=== PATIENT | male | born 1980 | race Caucasian/White ===

== ENCOUNTER 2017-05-07 15:24 | Emergency (ER) | payer OTHER ==
[2017-05-07 15:34] VITALS: BP 143/86; PULSE 88; TEMP 99.3; BMI 32.5
--- NOTE | 2017-05-07 19:48 | PDOC ---
History of Present Illness - General Chief Complaint: Headache Stated Complaint: PCP SENT Time Seen by Provider: 05/07/17 19:25 History Source: Patient - History of Present Illness Initial Comments: 05/07/17 19:41 36 year old with headaches on and off worse with bearing down with some associated dizziness. patient currently asymptomatic. patient s/p MRI by PMD Dr. Daniels who advised patient to be seen in the ED for Neurosurgical evaluation. Patient denies headache, dizziness, NVD, abdominal pain. Past History - Psycho/Social/Smoking Cessation Hx Anxiety: No Suicidal Ideation: No Smoking History: Never smoked Have you smoked in the past 12 months: No Information on smoking cessation initiated: No Hx Alcohol Use: No Drug/Substance Use Hx: No Substance Use Type: None Neuro Specific PMHX - Complaint Specific PMHX Glaucoma: No Herniated Disk: No Laminectomy: No Migraine: No Multiple Sclerosis: No Neuropathy: No TIA: No Review of Systems - Review of Systems Able to Perform ROS?: Yes Is the patient limited Welsh proficient: No Constitutional: No: Symptoms Reported, See HPI, Chills, Diaphoresis, Fever, Loss of Appetite, Malaise, Night Sweats, Weakness, Weight Stable, Unintentional Wgt. Loss, Unexplained wgt Loss, Other Neurological: Yes: Headache, Dizziness. No: Symptoms reported, See HPI, Numbness, Paresthesia, Pre-Existing Deficit, Seizure, Tingling, Tremors, Weakness, Unsteady Gait, Ataxia, Other *Physical Exam - Vital Signs Last Vital Signs Temp Pulse Resp BP Pulse Ox 99.3 F 88 17 143/86 99 05/07/17 15:31 05/07/17 15:31 05/07/17 15:31 05/07/17 15:31 05/07/17 15:31 - Physical Exam General Appearance: Yes: Appropriately Dressed Respiratory/Chest: positive: Lungs Clear, Normal Breath Sounds Gastrointestinal/Abdominal: positive: Normal Bowel Sounds, Soft Integumentary: positive: Normal Color, Dry, Warm Neurologic: positive: psychiatric clinician II-XII NML intact, Fully Oriented, Alert, Normal Mood/ Affect, Normal Response, Motor Strength 5/5 ED Treatment Course - RADIOLOGY Radiograph Interpretation: 05/07/17 19:52 MRI Out side radiology: 04/26/2017: 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 Progress Note - Progress Note Progress Note: A: Headache, chiari malformation P: neurosurgical consult. neuro exam normal Medical Decision Making - Medical Decision Making 05/07/17 19:[address] Davidson neurosurgery. reviewed MRI results recommends outpatient since patient is not acutely ill. 05/07/17 20:[address] Shruthi Daniels is aware of plan. *DC/Admit/Observation/Transfer Diagnosis at time of Disposition: Chiari I malformation - Discharge Dispostion Disposition: HOME - Referrals Referrals: Candis Daniels MD [Primary Care Provider] - Dimitri Cannon MD, FAANS [Staff Physician] - Call tomorrow - Patient Instructions Printed Discharge Instructions: Chiari Malformation Additional Instructions: Please call Dr. Davidson's office tomorrow for a prompt follow up. return to the ER if you are having dizziness, worsening headache, nausea. NIH Stroke Scale - Initial Evaluation Level of consciousness: Alert Ask patient the month and their age: Answers both correctly Ask patient to open & close eyes; make fist and let go: Obeys both correctly Best gaze (horizontal eye movement): Normal Visual field testing: No visual field loss Facial paresis (Show teeth/raise eyebrows/close eyes tight): Normal symmetrical movement Motor Function: Left Arm: Normal Motor Function: Right Arm: Normal (extends arm 90 (or 45) degrees for 10 seconds without drift Motor Function: Left Leg: Normal (extends leg 30 degrees for 5 seconds without drift) Motor Function: Right Leg: Normal (extends leg 30 degrees for 5 seconds without drift) Limb Ataxia: No ataxia Sensory(Use pinprick test arms,legs,trunk,face/side to side): Normal Best language (Describe picture, name items, read sentences): No Aphasia Dysarthria (read several words): Normal articulation Extinction and Inattention: No abnormality - Total Score NIH Stroke Scale Score: 0
== END 2017-05-07 20:00 | disposition home or self-care (01) ==
LOC: JER 15:24
DX: G93.5 Compression of brain (principal)
CPT/HCPCS: 99281-25

== ENCOUNTER 2019-06-10 16:38 | Emergency (ER) | payer OTHER ==
[2019-06-10 16:55] VITALS: BP 101/67; PULSE 89; TEMP 98.7; BMI 26.2
[2019-06-10] MEDS ORDERED: DEXAMETHASONE SOD PHOSPHATE 10 MG/1 ML VIAL ONE (18:20)
[2019-06-10] MEDS ORDERED: DEXAMETHASONE LIQUID 0.5 MG/5 ML PO ONE (18:20)
--- NOTE | 2019-06-10 18:33 | PDOC ---
History of Present Illness - General Chief Complaint: Sore Throat Stated Complaint: Sore Throat/COUGH Time Seen by Provider: 06/10/19 17:30 History Source: Patient Exam Limitations: No Limitations Past History - Travel Traveled outside of the country in the last 30 days: No Close contact w/someone who was outside of country & ill: No - Past Medical History Allergies/Adverse Reactions: Allergies Allergy/AdvReac Type Severity Reaction Status Date / Time No Known Allergies Allergy Verified 06/10/19 16:55 Home Medications: Ambulatory Orders Methylprednisolone [Medrol Dose Robin] 4 mg PO ASDIR #21 tablet 06/10/19 COPD: No Other medical history: DENIES - Immunization History Immunization Up to Date: Yes - Psycho Social/Smoking Cessation Hx Smoking History: Never smoked Have you smoked in the past 12 months: No Information on smoking cessation initiated: No Hx Alcohol Use: No Drug/Substance Use Hx: No Substance Use Type: None Review of Systems - Review of Systems Able to Perform ROS?: Yes Comments:: 06/10/19 18:17 CONSTITUTIONAL: Absent: fever, chills, diaphoresis, generalized weakness, malaise, loss of appetite HEENT: Present: sore throat Absent: rhinorrhea, nasal congestion, throat swelling, difficulty swallowing, mouth swelling, ear pain, eye pain, visual Changes CARDIOVASCULAR: Absent: chest pain, loss of consciousness, palpitations, irregular heart rate, peripheral edema RESPIRATORY: Absent: cough, shortness of breath, dyspnea with exertion, orthopnea, wheezing, stridor, hemoptysis GASTROINTESTINAL: Absent: abdominal pain, abdominal distension, nausea, vomiting, diarrhea, constipation, melena, hematochezia GENITOURINARY: Absent: dysuria, frequency, urgency, hesitancy, hematuria, flank pain, genital pain MUSCULOSKELETAL: Absent: myalgia, arthralgia, joint swelling SKIN: Absent: rash, itching, pallor HEMATOLOGIC/IMMUNOLOGIC: Absent: easy bleeding, easy bruising, lymphadenopathy, frequent infections ENDOCRINE: Absent: unexplained weight gain, unexplained weight loss, heat intolerance, cold intolerance NEUROLOGIC: Absent: headache, focal weakness or paresthesias, dizziness, unsteady gait, seizure, mental status changes, bladder or bowel incontinence PSYCHIATRIC: Absent: anxiety, depression, suicidal or homicidal ideation, hallucinations. Is the patient limited Romanian proficient: No *Physical Exam - Vital Signs Last Vital Signs Temp Pulse Resp BP Pulse Ox 98.7 F 89 18 101/67 99 06/10/19 16:53 06/10/19 16:53 06/10/19 16:53 06/10/19 16:53 06/10/19 16:53 - Physical Exam Comments: 06/10/19 18:17 GENERAL: Well developed, well nourished. Awake and alert. No acute distress. HEENT: Normocephalic, atraumatic. PERRLA, EOMI. No conjunctival pallor. Sclera are non- icteric. Moist mucous membranes. Oropharynx is erythematous and mild swelling noted to the uvula. NECK: Supple. Full ROM. No JVD. Carotid pulses 2+ and symmetric, without bruits. No thyromegaly. No lymphadenopathy. CARDIOVASCULAR: Regular rate and rhythm. No murmurs, rubs, or gallops. Distal pulses are 2+ and symmetric. PULMONARY: No evidence of respiratory distress. Lungs clear to auscultation bilaterally. No wheezing, rales or rhonchi. ABDOMINAL: Soft. Non-tender. Non-distended. No rebound or guarding. No organomegaly. Normoactive bowel sounds. MUSCULOSKELETAL Normal range of motion at all joints. No bony deformities or tenderness. No CVA tenderness. EXTREMITIES: No cyanosis. No clubbing. No edema. No calf tenderness. SKIN: Warm and dry. Normal capillary refill. No rashes. No jaundice. NEUROLOGICAL: Alert, awake, appropriate. Cranial nerves 2-12 intact. No deficits to light touch and temperature in face, upper extremities and lower extremities. No motor deficits in the in face, upper extremities and lower extremities. Normoreflexic in the upper and lower extremities. Normal speech. Toes are down- going bilaterally. Gait is normal without ataxia. PSYCHIATRIC: Cooperative. Good eye contact. Appropriate mood and affect. Medical Decision Making - Medical Decision Making 06/10/19 19:30 The patient is a 38-year-old male with no past medical history who presents to the ER today with 3 weeks of sore throat. He has seen his primary care doctor for this issue. He was initially given Ceftin for his pain. He took the full dose and it did not resolve. His primary care doctor then switched him to Augmentin. He states he is still having sore throat and difficulty swallowing. He takes Tylenol with some relief of his symptoms. Denies fevers, chills, nausea , vomiting and diarrhea. A/P: Pharyngitis/uvulitis On exam patient with erythematous and slightly edematous uvula. His midline. No airway blockage. Patient is talking, airway is clear and maintained. Suspect this may be viral in etiology given length of symptoms with no improvement on antibiotics. Defer throat culture given he's been on antibiotics for almost 2 weeks. We'll treat with Decadron for the uvulitis; steroid sent the patient pharmacy for outpatient treatment. ENT referral given Discharge home with strict return precautions I discussed the physical exam findings, ancillary test results and final diagnoses with the patient. I answered all of the patient's questions. The patient was satisfied with the care received and felt comfortable with the discharge plan and treatment plan. The Patient agrees to follow up with the primary care physician/specialist within 24-72 hours. Return precautions were given. Discharge - Discharge Information Problems reviewed: Yes Clinical Impression/Diagnosis: Pharyngitis Qualifiers: Pharyngitis/tonsillitis etiology: unspecified etiology Qualified Code(s): J02.9 - Acute pharyngitis, unspecified Condition: Stable Disposition: HOME - Admission No - Additional Discharge Information Prescriptions: Methylprednisolone [Medrol Dose Robin] 4 mg PO ASDIR #21 tablet - Follow up/Referral Referrals: Candis Daniels MD [Primary Care Provider] - Kamar Valenzuela MD [Staff Physician] - - Patient Discharge Instructions Patient Printed Discharge Instructions: DI for Pharyngitis/Tonsillopharyngitis -- Adult Additional Instructions: You have a sore throat or pharyngitis. Continue taking your Augmentin as previously directed Take the medrol dose pack as directed starting tomorrow You may take tylenol 650mg every 4 hours as needed for pain Please do warm water gargles and cough drops to help with your pain. Change your toothbrush when you started feeling better. Follow-up with your primary care doctor. Call the specialist tomorrow (ENT) for an appointment. His name is Dr. Valenzuela. Return to the ER for fever, difficulty breathing, difficulty swallowing, or if you have any changes in your symptoms. - Post Discharge Activity Work/Back to School Note: Back to Work
== END 2019-06-10 18:47 | disposition home or self-care (01) ==
LOC: JERFT 16:38
DX: J02.9 Acute pharyngitis, unspecified (principal)
CPT/HCPCS: 99281-25

== ENCOUNTER 2019-10-05 15:33 | Emergency (ER) | payer OTHER ==
[2019-10-05] MEDS ORDERED: ACETAMINOPHEN 325 MG TABLET (FP) ONE (15:51)
[2019-10-05 15:55] VITALS: BP 116/68; PULSE 93; TEMP 100.1; BMI 29.1
[2019-10-05] MEDS ORDERED: ACETAMINOPHEN 325 MG TABLET (FP) PO ONE (15:55)
[2019-10-05] MEDS ORDERED: DEXAMETHASONE LIQUID 0.5 MG/5 ML PO ONE (17:09)
[2019-10-05] MEDS ORDERED: DEXAMETHASONE SOD PHOSPHATE 10 MG/1 ML VIAL ONE (17:11)
--- NOTE | 2019-10-05 17:13 | PDOC ---
History of Present Illness - General Chief Complaint: Sore Throat Stated Complaint: SORE THROAT Time Seen by Provider: 10/05/19 16:25 History Source: Patient Exam Limitations: No Limitations - History of Present Illness Initial Comments: 10/05/19 17:08 HISTORY OF PRESENT ILLNESS: 38-year-old male past medical history of Chiari malformation status post decompression who presents emergency department for evaluation of sore throat which is worsened over the past 3 days. Patient was seen and evaluated at another facility 3 days ago and was determined to have streptococcal pharyngitis. Patient was started on Augmentin at that time the patient is concerned that he still has a sore throat after 3 days. No recent travel or sick contacts. PAST MEDICAL HISTORY: Chiari malformation status post decompression SURGICAL HISTORY: Denies ALLERGIES: No known drug allergies REVIEW OF SYSTEMS General/Constitutional: Denies fever or chills. Denies weakness, weight change. HEENT: See HPI Cardiovascular: Denies chest pain or shortness of breath. Respiratory: Denies cough, wheezing, or hemoptysis. Gastrointestinal: Denies nausea, vomiting, diarrhea or constipation. Denies rectal bleeding. Genitourinary: Denies dysuria, frequency, or change in urination. Musculoskeletal: Denies joint or muscle swelling or pain. Denies neck or back pain. Skin and breasts: Denies rash or easy bruising. Neurologic: Denies headache, vertigo, loss of consciousness, or loss of sensation. Psychiatric: Denies depression or anxiety. Endocrine: Denies increased thirst. Denies abnormal weight change. Hematologic/Lymphatic: Denies anemia, easy bleeding, or history of blood clots. Allergic/Immunologic: Denies hives or skin allergy. Denies latex allergy. PHYSICAL EXAM General Appearance: Well-appearing, appropriately dressed. No apparent distress , no intoxication. HEENT: EOMI, PERRLA, normal ENT inspection, normal voice, TMs normal. No conjunctival pallor. No photophobia, scleral icterus. Oropharynx beefy red with tonsillar swelling present bilaterally. Tonsillar exudate present bilaterally. Uvula is midline. Neck: Supple. Trachea midline. No tenderness, rigidity, carotid bruit, stridor , lymphadenopathy, or thyromegaly. Neurologic: branding specialist II-XII intact. Fully oriented, alert. Appropriate mood/affect. Motor strength 5/5. No appreciable EOM palsy, facial droop or sensory deficit. 10/05/19 17:11 Past History - Past Medical History Allergies/Adverse Reactions: Allergies Allergy/AdvReac Type Severity Reaction Status Date / Time No Known Allergies Allergy Verified 10/05/19 15:53 Home Medications: Ambulatory Orders Amoxicillin 875 mg PO BID 10/05/19 COPD: No - Immunization History Immunization Up to Date: Yes - Psycho Social/Smoking Cessation Hx Smoking History: Unknown if ever smoked Have you smoked in the past 12 months: No Hx Alcohol Use: No Drug/Substance Use Hx: No Substance Use Type: None *Physical Exam - Vital Signs Last Vital Signs Temp Pulse Resp BP Pulse Ox 100.1 F H 93 H 18 116/68 100 10/05/19 15:53 10/05/19 15:53 10/05/19 15:53 10/05/19 15:53 10/05/19 15:53 ED Treatment Course - Medications Given in the ED: ED Medications Discontinued Medications Generic Name Dose Route Start Last Admin Trade Name Freq PRN Reason Stop Dose Admin Acetaminophen 975 mg 10/05/19 15:55 10/05/19 15:56 Tylenol - PO 10/05/19 15:56 975 mg NOW ONE Administration Medical Decision Making - Medical Decision Making 10/05/19 17:11 A/P: 38-year-old male with 3 days of sore throat. Patient was seen at another facility and was diagnosed with a streptococcal pharyngitis. Patient has been taking Augmentin since that time and is still having some sore throat. Decadron 10 mg orally now Tylenol 975 mg orally now Discharge home 10/05/19 17:13 Discharge - Discharge Information Problems reviewed: Yes Clinical Impression/Diagnosis: Pharyngitis Qualifiers: Pharyngitis/tonsillitis etiology: unspecified etiology Qualified Code(s): J02.9 - Acute pharyngitis, unspecified Condition: Stable Disposition: HOME - Admission No - Follow up/Referral Referrals: Candis Daniels MD [Primary Care Provider] - - Patient Discharge Instructions Additional Instructions: Take Augmentin as previously prescribed. Salt water garggles. Throw away your toothbrush and start using a new toothbrush. No sharing of drinks, utensils or toothbrushes. Take Motrin as directed by reaming machine operator's instructions. Return to ED for worsening fevers, worsening sore throat, chest pain, shortness of breath or any other concerns. - Post Discharge Activity
== END 2019-10-05 17:19 | disposition home or self-care (01) ==
LOC: JERFT 15:33
DX: J02.9 Acute pharyngitis, unspecified (principal)
CPT/HCPCS: 99281-25

== ENCOUNTER 2019-10-10 09:24 | Emergency (ER) | payer OTHER ==
[2019-10-10 09:41] VITALS: BP 101/63; PULSE 70; TEMP 98.3; BMI 29.1
[2019-10-10] MEDS ORDERED: ACETAMINOPHEN 325 MG TABLET (FP) PO ONE (10:41)
[2019-10-10] MEDS ORDERED: DEXAMETHASONE LIQUID 0.5 MG/5 ML PO ONE (10:41)
--- NOTE | 2019-10-10 10:42 | PDOC ---
History of Present Illness - General Chief Complaint: Cold Symptoms Stated Complaint: COLD SYMPTOMS Time Seen by Provider: 10/10/19 09:43 History Source: Patient Exam Limitations: No Limitations Past History - Travel Traveled outside of the country in the last 30 days: No Close contact w/someone who was outside of country & ill: No - Past Medical History Allergies/Adverse Reactions: Allergies Allergy/AdvReac Type Severity Reaction Status Date / Time No Known Allergies Allergy Verified 10/05/19 15:53 Home Medications: Ambulatory Orders Amoxicillin 875 mg PO BID 10/05/19 Clindamycin [Cleocin -] 300 mg PO TID #21 capsule 10/10/19 Ibuprofen 800 mg PO TID #30 tablet 10/10/19 COPD: No - Immunization History Immunization Up to Date: Yes - Psycho Social/Smoking Cessation Hx Smoking History: Never smoked Have you smoked in the past 12 months: No Information on smoking cessation initiated: No Hx Alcohol Use: No Drug/Substance Use Hx: No Substance Use Type: None Review of Systems - Review of Systems Able to Perform ROS?: Yes Comments:: 10/10/19 13:16 CONSTITUTIONAL: Absent: fever, chills, diaphoresis, generalized weakness, malaise, loss of appetite HEENT: Present: Sore throat absent: rhinorrhea, nasal congestion, throat swelling, difficulty swallowing, mouth swelling, ear pain, eye pain, visual Changes CARDIOVASCULAR: Absent: chest pain, loss of consciousness, palpitations, irregular heart rate, peripheral edema RESPIRATORY: Absent: cough, shortness of breath, dyspnea with exertion, orthopnea, wheezing, stridor, hemoptysis SKIN: Absent: rash, itching, pallor HEMATOLOGIC/IMMUNOLOGIC: Absent: easy bleeding, easy bruising, lymphadenopathy, frequent infections ENDOCRINE: Absent: unexplained weight gain, unexplained weight loss, heat intolerance, cold intolerance NEUROLOGIC: Absent: headache, focal weakness or paresthesias, dizziness, unsteady gait, seizure, mental status changes, bladder or bowel incontinence PSYCHIATRIC: Absent: anxiety, depression, suicidal or homicidal ideation, hallucinations. Is the patient limited Mohawk proficient: No *Physical Exam - Vital Signs Last Vital Signs Temp Pulse Resp BP Pulse Ox 98.3 F 70 16 101/63 100 10/10/19 09:39 10/10/19 09:39 10/10/19 09:39 10/10/19 09:39 10/10/19 09:39 - Physical Exam 10/10/19 13:17 GENERAL: The patient is awake, alert, and fully oriented, in no acute distress. HEAD: Normal with no signs of trauma. EYES: Pupils equal, round and reactive to light, extraocular movements intact, sclera anicteric, conjunctiva clear. HEENT: No nasal congestion or rhinorrhea. No sinus Tenderness. Mucous membranes are moist. (+) tonsillar erythema, exudate or edema. Ulceration noted to the left tonsil. Uvula is midline. No TM bulging, dullness or erythema EXTREMITIES: Normal range of motion, no edema. NEUROLOGICAL: Normal speech, normal gait. PSYCH: Normal mood, normal affect. SKIN: Warm, Dry, normal turgor, no rashes or lesions noted. Medical Decision Making - Medical Decision Making 10/10/19 13:18 The patient is a 38-year-old male with past medical history of Chiari malformation status post surgery, presents to the ER today for sore throat. He states that the pain is been going on for 10 days. He states he finished a course of Augmentin however he is still having symptoms. Denies fevers, chills, difficulty swallowing. He is able to swallow his own secretions. A/P: Strep pharyngitis Rapid strep positive Delay in disposition due to strep results. We will change patient to Clindamycin Refer to ENT Discharge home I discussed the physical exam findings, ancillary test results and final diagnoses with the patient. I answered all of the patient's questions. The patient was satisfied with the care received and felt comfortable with the discharge plan and treatment plan. The Patient agrees to follow up with the primary care physician/specialist within 24-72 hours. Return precautions were given. Discharge - Discharge Information Problems reviewed: Yes Clinical Impression/Diagnosis: Strep pharyngitis Condition: Stable Disposition: HOME - Admission No - Follow up/Referral Referrals: Candis Daniels MD [Primary Care Provider] - Kamar Valenzuela MD [Staff Physician] - - Patient Discharge Instructions Patient Printed Discharge Instructions: DI for Strep Throat Additional Instructions: You have strep throat. This is a bacterial infection. Please take the clindamycin 300 mg every 8 hours. Finish the entire dose even i f you feel better. You may take Motrin 800 mg every 8 hours as needed for pain or fever. Warm water gargles and cough drops and just may also help her symptoms. Please throw way your toothbrush 3 days into treatment to prevent reinfection. Please follow up with the ENT specialist this week. Return to emergency department if you have worsening pain, difficulty swallowing, changes in your voice, lightheadedness, dizziness, or any changes in your symptoms. - Post Discharge Activity
[2019-10-10] MEDS ORDERED: ACETAMINOPHEN 325 MG TABLET (FP) ONE (11:54)
[2019-10-10] MEDS ORDERED: DEXAMETHASONE SOD PHOSPHATE 10 MG/1 ML VIAL ONE (11:54)
== END 2019-10-10 14:45 | disposition home or self-care (01) ==
LOC: JERFT 09:24
DX: J02.0 Streptococcal pharyngitis (principal); Q07.00 Arnold-Chiari syndrome without spina bifida or hydrocephalus
CPT/HCPCS: 87880; 99281-25